=== PATIENT | male | born 1995 | race Caucasian/White ===

== ENCOUNTER 2019-05-06 05:53 | Emergency (ER) | payer BC, OTHER ==
[2019-05-06 06:00] VITALS: BP 114/61; PULSE 79; RESP 20; TEMP 97
[2019-05-06] MEDS ORDERED: FAMOTIDINE 20 MG TAB PO STA (06:10)
[2019-05-06] MEDS ORDERED: predniSONE 20 MG TAB PO STA (06:10)
[2019-05-06] MEDS ORDERED: diphenhydrAMINE 50 MG CAP PO STA (06:10)
--- NOTE | 2019-05-06 06:15 | ED ---
Skin/Abscess/FB HPI - General Chief complaint: Skin/Abscess/Foreign Body Stated complaint: Itchy Time Seen by Provider: 05/06/19 06:01 Source: patient, RN notes reviewed Mode of arrival: ambulatory Limitations: no limitations - History of Present Illness Initial comments: This a 23-year-old male presents emergency Department chief complaint of itchy hives. Patient states that he woke up around 2:30 AM this morning states it is. Hhe states that he had up out of bed and moved to his coaches sleep and states that symptoms worsen. Patient states that he does not get exposed to anything new including soaps lotions detergents or any new medications. Patient states feels slightly improved at this time to his skin is still itchy and feels hot to touch. His significant other's describes that there was diffuse redness and white blotches. He denies any difficulty breathing or difficulty swallowing. Patient has normal drug ALLERGIES did not take any medications prior arrival. - Related Data Previous Rx's Medication Instructions Recorded predniSONE 50 mg PO DAILY #3 tab 05/06/19 Allergies Allergy/AdvReac Type Severity Reaction Status Date / Time No Known Allergies Allergy Verified 05/06/19 06:00 Review of Systems ROS Statement: Those systems with pertinent positive or pertinent negative responses have been documented in the HPI. ROS Other: All systems not noted in ROS Statement are negative. Past Medical History Past Medical History: No Reported History History of Any Multi-Drug Resistant Organisms: None Reported Past Surgical History: No Surgical Hx Reported Past Psychological History: No Psychological Hx Reported Smoking Status: Former smoker Past Alcohol Use History: Occasional Past Drug Use History: Marijuana General Exam Limitations: no limitations General appearance: alert, in no apparent distress Head exam: Present: atraumatic, normocephalic, normal inspection Eye exam: Present: normal appearance, PERRL, EOMI. Absent: scleral icterus, conjunctival injection, periorbital swelling ENT exam: Present: normal exam, normal oropharynx, mucous membranes moist, TM's normal bilaterally Neck exam: Present: normal inspection, full ROM. Absent: tenderness, meningismus, lymphadenopathy Respiratory exam: Present: normal lung sounds bilaterally. Absent: respiratory distress, wheezes, rales, rhonchi, stridor Cardiovascular Exam: Present: regular rate, normal rhythm, normal heart sounds. Absent: systolic murmur, diastolic murmur, rubs, gallop, clicks Neurological exam: Present: alert, oriented X3, CN II-XII intact Skin exam: Present: warm, dry, intact, normal color, rash (Diffuse erythema which is blanchable there are a few scattered hives noted) Course Vital Signs 05/06/19 05:57 Temperature 97.0 F L Pulse Rate 79 Respiratory 20 Rate Blood Pressure 114/61 O2 Sat by Pulse 97 Oximetry - Reevaluation(s) Reevaluation #1: 05/06/19 06:54 Patient reevaluated and is symptom-free. Medical Decision Making - Medical Decision Making 23-year-old male presented from for rash, urticaria. Patient's symptoms have resolved. Patient will be discharged return parameters discussed. Disposition Clinical Impression: Allergic reaction Disposition: HOME SELF-CARE Condition: Stable Instructions (If sedation given, give patient instructions): General Allergic Reaction (ED) Additional Instructions: Please return to the Emergency Department if symptoms worsen or any other concerns. Prescriptions: predniSONE 50 mg PO DAILY #3 tab Is patient prescribed a controlled substance at d/c from ED?: No Referrals: Collins Laureano DO [Primary Care Provider] - 1-2 days Time of Disposition: 06:56
== END 2019-05-06 07:03 | disposition home or self-care (01) ==
LOC: EC 05:53
DX: T78.40XA Allergy, unspecified, initial encounter (principal); Z87.891 Personal history of nicotine dependence
CPT/HCPCS: 99282; J7512